=== PATIENT | male | born 1975 | race Caucasian/White ===

== ENCOUNTER 2016-08-15 11:02 | Emergency (ER) | payer OTHER ==
[2016-08-15 11:07] VITALS: BP 137/101; PULSE 106; TEMP 98.2; BMI 34.5
--- NOTE | 2016-08-15 11:27 | PDOC ---
History of Present Illness - General History Source: Patient Exam Limitations: No Limitations - History of Present Illness Travel History: No <Toni Singh - Last Filed: 08/15/16 13:53> - General History Source: Patient Exam Limitations: No Limitations - History of Present Illness Initial Comments: 08/15/16 14:07 The patient is a 41 year old male with a significant past medical history of anxiety, who presents to the ED with intermittent headaches. Patient states he had vomiting, 2x diarrhea yesterday evening and none since then. Patient states he had a whole Coconut custard pie yesterday that might have caused his abdominal pain diarrhea/vomiting. Pt states his abdominal pain has improved substantially, and is only mild currently. pt states his headache is frontal, a little pounding, not sudden onset in nature. Patient denies fever, chills, constipation, hematochezia. No associated visoin changes, numbness/tingling/weakness. Patient denies having any sick contacts. Patient is a current smoker. Past surgical hx: Gallbladder and Appendix removed. <Tristan Foster - Last Filed: 08/15/16 14:08> - General Chief Complaint: Pain Stated Complaint: ABD PAIN Time Seen by Provider: 08/15/16 11:15 Past History - Past Medical History Psychiatric Problems: Yes (ANXIETY) - Surgical History Appendectomy: Yes Cholecystectomy: Yes - Psycho/Social/Smoking Cessation Hx Anxiety: Yes Suicidal Ideation: No Smoking History: Current every day smoker Number of Cigarettes Smoked Daily: 10 Information on smoking cessation initiated: Yes 'Breaking Loose' booklet given: 08/15/16 Hx Alcohol Use: Yes (SOCIAL) Drug/Substance Use Hx: No Substance Use Type: None <Toni Singh - Last Filed: 08/15/16 13:53> <Tristan Foster - Last Filed: 08/15/16 14:08> - Past Medical History Allergies/Adverse Reactions: Allergies Allergy/AdvReac Type Severity Reaction Status Date / Time haloperidol [From Haldol] Allergy Verified 08/15/16 11:06 haloperidol lactate Allergy Verified 08/15/16 11:06 [From Haldol] Home Medications: Ambulatory Orders Unobtainable [Unobtainable] 08/15/16 Review of Systems - Review of Systems Able to Perform ROS?: Yes Comments:: 08/15/16 14:07 CONSTITUTIONAL: No reported: Fever, Chills, Diaphoresis, Generalized Weakness, Malaise, Loss of Appetite HEENT: No reported: Rhinorrhea, Nasal Congestion, Throat Pain, Throat Swelling, Difficulty Swallowing, Mouth Swelling, Ear Pain, Eye Pain, Visual Changes CARDIOVASCULAR: No reported: Chest Pain, Syncope, Palpitations, Irregular Heart Rate, Lightheadedness, Peripheral Edema RESPIRATORY: No reported: Cough, Shortness of Breath, SOB with Exertion, Orthopnea, Wheezing , Stridor, Hemoptysis GASTROINTESTINAL: + nausea, vomiting.diarrhea No reported: Abdominal pain, Abdominal Distension, Constipation, Melena, Hematochezia GENITOURINARY: No reported: Dysuria, Frequency, Urgency, Hesitancy, Flank Pain, Genital Pain MUSCULOSKELETAL: No reported: Myalgia, Arthralgia, Joint Swelling, Back pain, Neck Pain SKIN: No reported: Rash, Itching, Pallor HEMEATOLOGIC/IMMUNOLOGIC: No reported: Easy Bleeding, Easy Bruising, Lymphadenopathy, Frequent infections ENDOCRINE: No reported: Unexplained Weight Gain, Unexplained Weight Loss, Heat Intolerance , Cold Intolerance NEUROLOGIC: + headache. No reported: Focal Weakness, Paresthesias, Vertigo, Lightheadedness , Unsteady Gait, Seizure, Mental Status Changes, Incontinence PSYCHIATRIC: No reported: Anxiety, Depression <Tristan Foster - Last Filed: 08/15/16 14:08> *Physical Exam - Vital Signs Last Vital Signs Temp Pulse Resp BP Pulse Ox 98.2 F 106 H 20 137/101 98 08/15/16 11:03 08/15/16 11:03 08/15/16 11:03 08/15/16 11:03 08/15/16 11:03 <Toni Singh - Last Filed: 08/15/16 13:53> - Vital Signs Last Vital Signs Temp Pulse Resp BP Pulse Ox 98.2 F 106 H 20 137/101 98 08/15/16 11:03 08/15/16 11:03 08/15/16 11:03 08/15/16 11:03 08/15/16 11:03 - Physical Exam Comments: 08/15/16 14:07 GENERAL: The patient is awake, alert, and fully oriented, Nontoxic - in no acute distress. HEAD: Normocephalic, atraumatic. EYES: extraocular movements intact, sclera anicteric, conjunctiva clear. ENT: Normal voice, Moist mucous membranes. NECK: Normal range of motion, supple LUNGS: Breath sounds equal, clear to auscultation bilaterally. No wheezes, no rhonchi, no rales. HEART: Regular rate and rhythm, normal S1 and S2 without murmur, rub or gallop. ABDOMEN: Soft, nontender, normoactive bowel sounds. No guarding, no rebound. No CVA tenderness EXTREMITIES: Normal range of motion, no edema. No clubbing or cyanosis. No cords, erythema, or tenderness. NEUROLOGICAL: No facial assymetry, Normal speech, PSYCH: Normal mood, normal affect. SKIN: Warm, Dry, normal turgor, <Tristan Foster - Last Filed: 08/15/16 14:08> ED Treatment Course - LABORATORY CBC & Chemistry Diagram: 08/15/16 11:30 08/15/16 11:30 <Toni Singh - Last Filed: 08/15/16 13:53> - LABORATORY CBC & Chemistry Diagram: 08/15/16 11:30 08/15/16 11:30 - ADDITIONAL ORDERS Additional order review: Laboratory Results 08/15/16 08/15/16 11:30 11:30 Sodium 141 Potassium 4.3 Chloride 104 Carbon Dioxide 27 Anion Gap 10 BUN 8 Creatinine 1.1 Creat Clearance w eGFR > 60 Random Glucose 87 Calcium 9.6 Total Bilirubin 0.6 AST 31 ALT 35 Alkaline Phosphatase 64 Total Protein 7.8 Albumin 4.2 Lipase Cancelled 107 08/15/16 11:30 RBC 6.12 H MCV 82.2 MCHC 32.7 RDW 14.3 MPV 8.3 Neutrophils % 56.2 Lymphocytes % 33.3 Monocytes % 6.5 Eosinophils % 2.7 Basophils % 1.3 - Medications Given in the ED: ED Medications Discontinued Medications Generic Name Dose Route Start Last Admin Trade Name Freq PRN Reason Stop Dose Admin Sodium Chloride 1,000 mls @ 1,000 mls/hr 08/15/16 11:29 08/15/16 11:56 Normal Saline - IV 08/15/16 12:28 1,000 mls/hr .Q1H ONE Administration Ondansetron HCl 4 mg 08/15/16 11:29 08/15/16 11:58 Zofran Injection IVPB 08/15/16 11:30 4 mg ONCE ONE Administration <Tristan Foster - Last Filed: 08/15/16 14:08> Medical Decision Making - Medical Decision Making 08/15/16 11:40 41y M hx of anxiety presents with complaint of abd pain n/v/d since yesterday w/ o any fevers. 08/15/16 13:53 labs reviewed and are negative the pt eloped prior to reasessment and discharging him <Toni Singh - Last Filed: 08/15/16 13:53> *DC/Admit/Observation/Transfer <Toni Singh - Last Filed: 08/15/16 13:53> - Attestations Scribe Attestion: 08/15/16 14:08 Documentation prepared by Tristan Foster, acting as medical planner for Toin Singh MD, MD. <Tristan Foster - Last Filed: 08/15/16 14:08> Diagnosis at time of Disposition: Eloped - Discharge Dispostion Disposition: ELOPED Condition at time of disposition: Unchanged/Unknown - Referrals Referrals: Rody Duffy MD [Primary Care Provider] -
[2016-08-15] MEDS ORDERED: ONDANSETRON 4 MG/2 ML VIAL IVPB ONE (11:29)
[2016-08-15] MEDS ORDERED: SODIUM CHLORIDE 1,000 ML IV ONE (11:29)
[2016-08-15] MEDS ORDERED: ONDANSETRON 4 MG/2 ML VIAL ONE (11:32)
[2016-08-15 11:56] LABS: BASOPHIL 1.3 % (0-2.0); EOSINOPHIL 2.7 % (0-4.5); MCH 26.8 pg (25.7-33.7); MCHC 32.7 g/dl (32.0-35.9); MEAN CELL VOLUME 82.2 fl (80-96); MEAN PLT VOLUME 8.3 fl (7.5-11.1); NEUTROPHILS 56.2 % (42.8-82.8); PLATELET COUNT 225 K/MM3 (134-434); RDW 14.3 % (11.9-15.9); WHITE BLOOD COUNT 10.2 K/mm3 (4.0-10.0)
[2016-08-15 12:25] LABS: ALBUMIN 4.2 g/dl (3.4-5.0); ANION GAP 10 (8-16); BILIRUBIN,TOTAL 0.6 mg/dL (0.2-1.0); CALCIUM 9.6 mg/dL (8.5-10.1); CO2 27 mmol/L (21-32); CREATININE 1.1 mg/dL (0.7-1.3); GLUCOSE,RANDOM 87 mg/dL (74-106); SGPT/ALT 35 U/L (12-78); TOT PROT 7.8 g/dl (6.4-8.2)
[2016-08-15 12:26] LABS: ALK PHOS 64 U/L (45-117)
[2016-08-15 12:28] LABS: SGOT/AST 31 U/L (15-37)
== END 2016-08-15 13:39 | disposition left against medical advice (07) ==
LOC: JER 11:02
PROC: 3E033GC Introduction of Other Therapeutic Substance into Peripheral Vein, Percutaneous Approach (ICD-10-PCS; principal; 2016-08-15)
DX: R10.84 Generalized abdominal pain (principal); R11.2 Nausea with vomiting, unspecified; R19.7 Diarrhea, unspecified
CPT/HCPCS: 36415; 80053; 83690; 85025; 96374; 99283-25

== ENCOUNTER 2016-10-16 22:11 | Emergency (ER) | payer OTHER ==
[2016-10-16 22:17] VITALS: BP 157/92; PULSE 105; TEMP 98.4; BMI 35.5
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
== END 2016-10-17 04:41 | disposition left against medical advice (07) ==
LOC: JER 22:11
DX: Z53.21 Procedure and treatment not carried out due to patient leaving prior to being seen by health care provider (principal)
CPT/HCPCS: 99281-25

== ENCOUNTER 2018-03-30 00:09 | Emergency (ER) | payer OTHER ==
[2018-03-30 00:38] VITALS: BMI 32.3
--- NOTE | 2018-03-30 01:50 | PDOC ---
History of Present Illness - General Chief Complaint: Pain Stated Complaint: LEFT FOOT PAIN Time Seen by Provider: 03/30/18 01:35 History Source: Patient - History of Present Illness Initial Comments: 03/30/18 02:07 43 year old male with a PMH of anxiety presents c/o L foot pain. States he doesn't keep track of time so is unable to identify duration of foot pain. Patient evaluated earlier today at [facility], called 911 and requested to be brought to our ED. The patient denies any chest pain, shortness of breath, abdominal pain, nausea/ vomiting, diarrhea/constipation, dysuria/hematuria. Past History - Past Medical History Allergies/Adverse Reactions: Allergies Allergy/AdvReac Type Severity Reaction Status Date / Time haloperidol [From Haldol] Allergy Verified 03/30/18 00:27 haloperidol lactate Allergy Verified 03/30/18 00:27 [From Haldol] Home Medications: Ambulatory Orders NK [No Known Home Medication] 11/19/17 COPD: No Psychiatric Problems: Yes (ANXIETY, schizophrenia, bi-polar) - Surgical History Appendectomy: Yes Cholecystectomy: Yes - Suicide/Smoking/Psychosocial Hx Smoking History: Current every day smoker Have you smoked in the past 12 months: Yes Number of Cigarettes Smoked Daily: 20 Information on smoking cessation initiated: No 'Breaking Loose' booklet given: 08/15/16 Hx Alcohol Use: No Drug/Substance Use Hx: Yes Substance Use Type: None Review of Systems - Review of Systems Constitutional: No: Chills, Fever Respiratory: No: Cough, Shortness of Breath Cardiac (ROS): No: Chest Pain, Lightheadedness, Palpitations, Syncope ABD/GI: No: Abd. Pain w/ defecation, Constipated, Diarrhea, Vomiting : No: Burning, Dysuria *Physical Exam - Vital Signs Last Vital Signs Temp Pulse Resp BP Pulse Ox 98.7 F 97 H 22 H 148/74 100 03/30/18 00:21 03/30/18 00:21 03/30/18 00:21 03/30/18 00:21 03/30/18 00:21 - Physical Exam General Appearance: Yes: Nourished, Appropriately Dressed, Disheveled HEENT: positive: Normal Voice, Hearing Grossly Normal Neck: positive: Trachea midline, Supple Vascular Pulses: Dorsalis-Pedis (R): 2+ Extremity: positive: Other (LLE: 2+ DP pulse, trench foot changes on plantar surface) Medical Decision Making - Medical Decision Making 03/30/18 02:11 At time of initial evaluation patient not in assigned location. 43 year old male with foot pain. H/o earlier evaluation today @ [facility]. 2+ DP pulse, full ROM, plantar surface changes concerning for trench foot. Will give patient dry socks and d/c home. 03/30/18 05:00 Patient now stating he has suicidal ideations. Requesting psych evaluation. 1: [address] Gill @ [phone]. 03/30/18 07:[address] Gill for admission. Case signed out to Dr. Ardon (Attending). *DC/Admit/Observation/Transfer Diagnosis at time of Disposition: Immersion (trench) foot - Discharge Dispostion Disposition: HOME Condition at time of disposition: Good Decision to Admit order: No - Referrals - Patient Instructions Printed Discharge Instructions: DI for Anxiety -- Adult Additional Instructions: We are providing you with socks. Please keep your feet dry. Return to the ED for any new/worsening/concerning symptoms. - Post Discharge Activity
--- NOTE | 2018-03-30 04:55 | PDOC ---
Attending Attestation - Resident Resident Name: Tasha Batista - ED Attending Attestation I have performed the following: I have examined & evaluated the patient, The case was reviewed & discussed with the resident, I agree w/resident's findings & plan, Exceptions are as noted - HPI HPI: 03/30/18 06:25 The patient is a 43 year old male, with a significant past medical history of anxiety, schizophrenia and bipolar disorder, who presents to the emergency department with left foot pain. Patient was evaluated by [facility] ER prior to his arrival and discharged. Patient activated EMS from [facility] because he was unhappy with his discharge and states that he needs to be admitted. Pt denies fevers, chills, cp, sob, dizziness, n/v/d, and pain, LE edema, focal weakness/numbness. Initially denies SI/HI, but now stating he is unstable and suicidal. He requests psych eval. Allergies: Haloperidol. Haloperidol lactate. Social History: Homeless. - Physicial Exam PE: 03/30/18 04:48 agree with resident exam - Medical Decision Making 03/30/18 04:48 43yo M hx bipolar d/o, schizophrenia, anxiety, undomiciled presents to the ED after calling 911 from [facility] for L foot pain. Exam consistent with trench foot. Foot is well perfused, no evidence of trauma and no hx trauma. Pt appears comfortable and ambulating around ED with suitcase with steady gait. Provided pt with socks, and tray of food which he refused. Upon discharge, pt stating he can not be discharged and he needs admission upstairs as he is "unstable." Pt unable to elaborate but states that he would like to speak with a psychiatrist. He states that if we discharge him " I will kill myself and other people." Although I have a high suspicion for malingering, pt reports psych hx. Pt put on watch, psych consulted. 03/30/18 06:24 Pt on watch, chatting with security, no acute issues Psych c/s pending 03/30/18 07:00 Dr. Gill called, awaiting call back Case signed out to attending for f/u on psych recs and dispo
[2018-03-30 10:04] VITALS: BP 123/88; PULSE 93; TEMP 98.9
--- NOTE | 2018-03-30 11:44 | PDOC ---
*Physical Exam - Vital Signs Last Vital Signs Temp Pulse Resp BP Pulse Ox 98.9 F 93 H 18 123/88 94 L 03/30/18 10:03 03/30/18 10:03 03/30/18 10:03 03/30/18 10:03 03/30/18 10:03 Medical Decision Making - Medical Decision Making 03/30/18 11:42 Mr Mckay was signed out to me He has a h/o anxiety (per chart review bipolar and schizophrenia) and presented to the ER after calling an ambulance from [facility] after he was discharged from that facility The patient upon discharged claimed that he was suicidal and homicidal Pt evaluated by psych in the ER Dr Gill recommends discharge Will discharge to home 03/30/18 11:44 03/30/18 11:48 *DC/Admit/Observation/Transfer Diagnosis at time of Disposition: Immersion (trench) foot Qualifiers: Encounter type: initial encounter Laterality: right Qualified Code(s): T69.021A - Immersion foot, right foot, initial encounter - Discharge Dispostion Disposition: HOME Condition at time of disposition: Good Decision to Admit order: No - Referrals - Patient Instructions Printed Discharge Instructions: DI for Anxiety -- Adult Additional Instructions: We are providing you with socks. Please keep your feet dry. Return to the ED for any new/worsening/concerning symptoms. - Post Discharge Activity
--- NOTE | 2018-03-30 11:53 | CON.PSY ---
Psychiatry Consult Chief Complaint: Patient was seen at [facility] and was discharged came to Er for foot pain evalyation. Patient is homeless and unkempt. Symptoms: reports: Disorganized/Disruptive Thoughts, Conduct Problems - Previous Psychiatric Treatment Outpatient: None Inpatient: Within the last 12 months - Previous Substance Abuse Treatment Outpatient: None Inpatient: None - Reason for Previous Treatment Reason for Previous Treatment: Psychotic Episode - Allergies Allergies: Allergies Allergy/AdvReac Type Severity Reaction Status Date / Time haloperidol [From Haldol] Allergy Verified 03/30/18 00:27 haloperidol lactate Allergy Verified 03/30/18 00:27 [From Haldol] - Current Living Status Usual Living Arrangement: Alone - Current Mental Status Evaluation Appearance: Disheveled Attitude: Guarded - Affect Affect: Constrictive Appropriateness: Not Appropriate - Mood Mood: Irritable - Speech/Language Expressive: Coherent - Psychomotor Activity Psychomotor Activity: Hyperactive - Thought Process Thought Process: Circumstantial - Thought Content Hallucinations: Absent Delusions: Absent - Self Perception Self Perception: No Impairment - Cognition Attention: Alert Orientation: Time Memory, Immediate Recall: Intact Memory, Short Term: 2/3 Memory, Remote: Impaired - Concentration Serial Sevens Intact: No Simple Calculations Intact: No - Abstraction Proverb Interpretation: Impaired Judgement: Minimally Impaired - Insight Insight: Impaired - Impulse Control Impulse Control: Minimally Impaired - Suicidal Ideation Suicidal Ideation: No Assessment/Plan 1) [facility]. 2) refer to Correction, Return to [facility].
== END 2018-03-30 12:02 | disposition home or self-care (01) ==
LOC: JER 00:09
DX: T69.022A Immersion foot, left foot, initial encounter (principal); F20.9 Schizophrenia, unspecified; R45.851 Suicidal ideations; F41.9 Anxiety disorder, unspecified; F17.210 Nicotine dependence, cigarettes, uncomplicated
CPT/HCPCS: 99282-25

== ENCOUNTER 2023-02-06 10:03 | Emergency (ER) | payer OTHER ==
[2023-02-06 10:16] VITALS: BP 151/90; PULSE 99; RESP 20; TEMP 98.4; BMI 35.5
== END 2023-02-06 11:15 | disposition left against medical advice (07) ==
LOC: JER 10:03
DX: R53.83 Other fatigue (principal)
CPT/HCPCS: 99281-25

== ENCOUNTER 2023-02-24 04:08 | Emergency (ER) | payer OTHER ==
[2023-02-24 04:27] VITALS: BP 150/93; PULSE 98; RESP 18; TEMP 97.6; BMI 23.3
== END 2023-02-24 04:43 | disposition left against medical advice (07) ==
LOC: JER 04:08
DX: M79.604 Pain in right leg (principal)
CPT/HCPCS: 99281-25